=== PATIENT | female | born 1960 | race Caucasian/White ===

== ENCOUNTER → 2019-10-04 | Outpatient (CLI) | payer OTHER ==
[~2019-10-04] MED LIST: LEVO75TA PO; LISI-130 PO
--- NOTE | 2019-10-04 13:27 | PAIN ---
DATE OF SERVICE: 10/04/2019 INITIAL CONSULTATION FOR PAIN CLINIC CHIEF COMPLAINT: Low back and right lower extremity pain. HISTORY OF PRESENT ILLNESS: The patient is a 59-year-old female who presents with history of pain in the low back, right lower extremity for about a year, not a result of any specific injury or action she is aware of, just gradually increasing over time with normal wear and tear and daily activity. The patient reports the pain is now on the right leg in the posterior gluteus, posterior thigh, lateral thigh, anterior thigh, medial thigh and the knee and into the lower leg, mostly in the anterior surface but in the calf as well, to the ankle of left foot and occasionally in the right great toe. The patient reports it is constant, throbbing, stabbing, tingling and numbness, radiating pain in the right leg, aching and dull at times in the back. The patient reports it is worse with walking, standing, change in positions, awakens her from sleep at least 3 times a night, does not affect her bowel or bladder control significantly without any loss of continence, but can cause some increased urinary frequency. The patient reports it does affect her ability to walk significantly. She is not using any assistive devices to ambulate, however. The patient has not had any further treatment at this time, no physical therapy, no chiropractic treatment or other. She is doing some stretching and strengthening exercises on her own. The patient rates her disability rating from 0-10, 10 being the worst, is an 8 with family home responsibilities, 10 with recreational activities, 9 with social activity and occupation, 10 with sexual behavior, 9 with self-care and 10 with life support activities. The patient did have MRI scan of the lumbar spine showing bulging disks and degenerative changes throughout the lumbar spine, mostly in the L3-L4 with right greater than left, bilateral neural foraminal narrowing with L4-L5 showing foraminal disk bulging resulting in mild narrowing of the anterior inferior right neural foramen, L5-S1 showing right foraminal disk bulging and endplate osteophyte formation resulting in moderate narrowing of the inferior portion of the right neural foramen and approaching inferior surface of the right foraminal L5 nerve root. The patient reports significant fatigability in the right lower extremity with walking and change in positions. No overt motor loss. PAST MEDICAL HISTORY: Significant for hearing loss, hypertension, dizziness, arthritis. PREVIOUS SURGERY: Include thyroidectomy, , foot surgery on the left foot in 1999 and 2003 as well as the right foot in 1999 and 2003, and fibroid excision in 1995. CURRENT MEDICATIONS: Include lisinopril and Synthroid. ALLERGIES: THE PATIENT IS ALLERGIC TO KAYCEE. FAMILY HISTORY: Significant for diabetes and cancers. SOCIAL HISTORY: The patient does not smoke, drinks alcohol, 2-3 glasses of wine daily on average. Denies any illegal, illicit or recreational drugs. She is , lives with her spouse, has 2 children living at home and lives locally in [place], [place]. REVIEW OF SYSTEMS: The patient's review of systems is positive for those items mentioned in history of present illness. All systems reviewed and otherwise negative. It is complete, full and well documented on the patient's chart. PHYSICAL EXAMINATION: VITAL SIGNS: The patient's blood pressure is 177/97, pulse 65, respirations are 18, temperature 98.0 degrees Fahrenheit, height is 66 inches and weight is 197 pounds. GENERAL: The patient is awake, alert, oriented, appropriate, very pleasant demeanor. HEENT: Shows normocephalic, atraumatic. Extraocular movements are intact and symmetrical. Oral cavity: Mucous membranes moist and pink. Dentition is intact. NECK: Shows anterior throat supple without palpable lymphadenopathy noted. Swallow reflex symmetrical. CHEST: Shows normal on inspection. Breath sounds are clear bilaterally. HEART: Shows S1, S2 clear. No murmurs auscultated. ABDOMEN: Soft, nontender, nondistended. No palpable organomegaly is noted. No rebound or guarding demonstrated. BACK: Shows spine grossly in the midline. Normal appearing thoracic kyphosis and lumbar lordotic curvature. Lumbar paraspinous muscle shows symmetrical on inspection, on palpation shows some moderate tenderness diffusely, but only diffusely without significant radiation. The patient shows good rotational motion with some minor tenderness with right lateral rotation as well as extension, but not with forward flexion or left lateral rotation of the lumbar spine. The patient shows no tenderness with specific palpation over the sacroiliac joints or the sacrum or the spinous processes of the lumbar spine. EXTREMITIES: The patient's lower extremities show deep tendon reflexes 2+ in the patellar, 1+ tendo-calcaneus tendons. Motor exam is strong with approximately 4 on a scale of 5 with right dorsiflexion and extension and 5/5 on the left, quadriceps and hamstring flexion likewise 4/5 right, 5/5 left. The patient has a positive straight leg raise on the right about 35 degrees, decreased with knee flexion, but not completely relieved. Left side is negative. Gaenslen's and Lencho's maneuvers are negative bilaterally as well. The patient is able to stand, stand on her toes without significant difficulty or loss of balance and walks with a slight favoring gait, does appear to favor the right lower extremity and has a limp favoring the right leg, not using any assistive device such as canes or walkers to ambulate. SKIN: Shows warm and dry, good turgor. No edema. No sores, rashes or bruising. IMPRESSION: 1. This is a 59-year-old female with radicular pain in right lower extremity in L3-L4 for L4-L5 and L5-S1 distribution, most significant at L4-L5. 2. MRI scan of lumbar spine as noted. 3. Hypertension. 4. History of arthritis. PLAN: Options were discussed with the patient including conservative medical managements, physical therapies and interventional techniques. She would like to pursue interventional techniques. We discussed a lumbar epidural steroid injection using description as well as anatomical models to describe the procedure. The patient will wait for preauthorization with her insurance provider and will return to clinic once authorization is obtained and we will plan on lumbar epidural steroid injection at that time, translaminar approach at the L4-L5 level. In the meantime, the patient will continue with strengthening and stretching exercises, doing daily stretches and walking as tolerated. ABI PORTER MD DR: LUCIEN/malvin JOB#: [id number] / [id number]
== END | disposition home or self-care (01) ==
LOC: PNCL 09:56
PROVIDERS: ATTEND Anesthesiology
DX: M79.604 Pain in right leg (principal); M54.17 Radiculopathy, lumbosacral region; I10 Essential (primary) hypertension; M19.90 Unspecified osteoarthritis, unspecified site; E89.0 Postprocedural hypothyroidism; Z88.8 Allergy status to other drugs, medicaments and biological substances
CPT/HCPCS: G0463

== ENCOUNTER → 2019-10-18 | Outpatient (CLI) | payer OTHER ==
[~2019-10-18] MED LIST changes: +IOHEXOL 180 MG/ML 10 ML VIAL. ONE; +methylPREDNISolone ACETATE 40 MG/ML VIAL. ONE
--- NOTE | 2019-10-18 10:59 | PAIN ---
DATE OF SERVICE: 10/18/2019 PROGRESS NOTE FOR PAIN CLINIC DIAGNOSES: Lumbar radiculopathy with lumbar degenerative disk disease. HISTORY OF PRESENT ILLNESS: The patient is a 59-year-old female who returns for followup status post initial evaluation and preauthorization for lumbar epidural steroid injection. The patient has obtained that now and would like to proceed. She reports still significant pain in the low back, right lower extremity, posterior gluteus, posterolateral thigh, lateral anterior thigh, and medial thigh on the right side. The patient reports that 9 on a scale of 10 at its worse, the past week, 8 on average, 7 at its least and is an 8 today. The patient reports it is aching, shooting, tingling and radiating becoming more constant with walking and standing. No new motor or sensory deficits. It still awakens her from sleep about every 3-4 hours. PHYSICAL EXAMINATION: VITAL SIGNS: The patient's blood pressure 179/112, pulse 63, respirations 16, temperature 98.5 degrees Fahrenheit, and weight is 195 pounds. GENERAL: The patient is awake, alert, oriented, appropriate, very pleasant demeanor. HEENT: Head shows normocephalic, atraumatic. Extraocular movements are intact and symmetrical. Oral cavity: Mucous membranes moist and pink. Dentition is intact. NECK: Shows anterior throat supple without palpable lymphadenopathy noted. Swallow reflex symmetrical. CHEST: Shows normal on inspection. Breath sounds are clear bilaterally. HEART: Shows S1, S2 clear. ABDOMEN: Soft, nontender, nondistended. BACK: Shows spine grossly in the midline. Normal-appearing thoracic kyphosis and some minor flattening of lumbar lordotic curvature. Lumbar paraspinous muscle shows symmetrical on inspection, with palpation shows some moderate tenderness diffusely bilaterally going diffusely without significant radiation. The patient has good rotational motion of lumbar spine, both laterally as well as extension and flexion without difficulty. EXTREMITIES: The patient's lower extremities show deep tendon reflexes 2+ in the patellar, 1+ tendo-calcaneus tendons. Motor exam is strong with approximately 4 on a scale of 5 on the right and 5/5 on the left with dorsiflexion and extension. Peripheral pulses are 1+ posterior tibia. No peripheral edema bilaterally. Options were discussed with the patient. The patient's old chart was reviewed. Her current medication regimen updated. Current review of systems updated today as well. We will proceed with a first in a series of lumbar epidural steroid injection today with fluoroscopic guidance. Risks were again discussed including but not limited to bleeding, infection, possibility of epidural hematoma, subsequent neurological compromise, dural puncture, headaches, spinal cord and/or nerve damage, side effects of steroid medication, and poor results regarding pain control. The patient understands and wished to proceed. The patient will return to clinic in approximately 2 weeks for followup. She was counseled on return appointment, activity level and side effects to be aware of. DIAGNOSIS: Lumbar radiculopathy with lumbar degenerative disk disease. PROCEDURE: Lumbar epidural steroid injection, translaminar approach at L4-L5 level using C-arm fluoroscopic guidance under sterile prep and drape using local anesthetic. MEDICATION INJECTED: A total of 120 mg Depo-Medrol plus 10 mL of preservative-free normal saline and 2 mL of contrast. CONDITION AT DISCHARGE: Stable. The patient tolerated the procedure well, had no complications. ABI PORTER MD DR: LUCIEN/malvin JOB#: [id number] / [id number]
== END ==
LOC: PNCL 10:07
PROVIDERS: ATTEND Anesthesiology
DX: M51.16 Intervertebral disc disorders with radiculopathy, lumbar region (principal)
CPT/HCPCS: 62323; J1030; Q9965

== ENCOUNTER → 2020-04-10 | Outpatient (CLI) | payer OTHER ==
[~2020-04-10] MED LIST changes: +AMLO2.5T5 PO; -LEVO75TA PO; +LEVO75TA90 PO; +METF500T16 PO; +TELM40TA PO; +methylPREDNISolone ACETATE 80 MG/ML VIAL. ONE
--- NOTE | 2020-04-10 08:51 | PDOC ---
Progress Note - Pain Clinic Date of Service: DOS: DATE: 04/10/20 TIME: 08:48 Diagnosis: Dx: Lumbar radiculopathy with lumbar degenerative disc disease History or Present Illness: HPI: 59-year-old female presents history of pain low back and right lower extremity after lumbar epidural steroid traction x1 October 18, 2019. Patient pushed very well after the first injection with approximately 75% improvement now the pain is returning in the low back and right lower extremity posterior gluteus posterior lateral thigh lateral anterior thigh anteromedial thigh medial lower leg into the ankle radiating described as constant unbearable at times with walk ing standing and aching in the low back. Patient reports better with sitting or laying down generally not awaken her from sleep at night but can occasionally patient reports agrees to reposition to get back to sleep. Patient rates her pain as a 9 on scale 10 is worse over the past week 9 on average 8 its least is a 9 today. Patient reports no new motor or sensory deficits no new bowel or bladder incontinence or other complaints. Physical Exam: VS: Blood pressure is 156/94 pulse 66 respirations 16 temperature is 90.2 F weight is 192 pounds PE: PHYSICAL EXAMINATION: GENERAL: The patient is awake, alert, oriented, appropriate, very pleasant demeanor HEENT: Shows normocephalic, atraumatic. Extraocular movements are intact and symmetrical. Oral cavity: Mucous membranes moist and pink. Dentition is intact. NECK: Shows anterior throat supple without palpable lymphadenopathy noted. Swallow reflex symmetrical. CHEST: Shows normal on inspection. Breath sounds are clear bilaterally, no rales rhonchi or wheezes. HEART: Shows S1, S2 clear. No murmurs auscultated. ABDOMEN: Soft, nontender, nondistended. No palpable organomegaly is noted. No rebound or guarding demonstrated. BACK: Shows spine grossly in the midline. Normal-appearing cervical lordotic curvature. There is slightly increased thoracic kyphosis, some minor flattening of the lumbar lordotic curvature. Lumbar paraspinous muscles show symmetrical on inspection, on palpation shows some moderate tenderness diffusely throughout the upper, middle and lower distribution of the paraspinous muscles bilaterally and also into the lower thoracic paraspinous musculature, firm, but without specific trigger points, without radiation of pain. The patient has good rotational motion of the lumbar spine, both laterally as well as extension and flexion without significant difficulty. No tenderness over the spinous processes, sacrum or sacroiliac regions. EXTREMITIES: Lower extremities show deep tendon reflexes 2+ in the patellar and tendo calcaneus tendons. Motor exam is 4 on a scale of 5 with right dorsiflexion, extension, quadriceps and hamstring flexion and 5/5 on the left. Peripheral pulses are 1+ posterior tibial. No peripheral edema is noted bilaterally. Lower extremities are warm and dry to touch, equal in color and appearance. Straight leg raise noted to be positive on the right about 4 degrees, left side is negative. Gaenslen's and Lencho's maneuvers are negative as well. The patient is able to stand, stand on her toes without significant difficulty or loss of balance walks with a slight favoring gait favoring the right lower extremity but no assistive devices or canes or walkers. SKIN: Shows warm and dry, good turgor. No edema. No sores, rashes or bruising throughout. Procedure: Procedure: Options discussed with the patient patient's old chart was reviewed as her current medication regimen updated current review of systems updated today as well. We will proceed with a second in the series lumbar epidural steroid check today with fluoroscopic guidance. Risks are again discussed including but not limited to bleeding infection possibility of epidural hematoma subsequent neurological compromise dural puncture headache spinal cord and nerve damage side effects of steroid medication and poor results chronic pain control. Patient understands and wishes to proceed. Patient will return to the clinic in approximately 2 weeks for follow-up. Was counseled as to return appointment activity level and side effects to be aware of. Medication Injected: Med Injected: Procedure is lumbar epidural steroid injection under local anesthetic using sterile prep and drape at the L4-5 level using C-arm fluoroscopic guidance in both AP and lateral views medications injected is 120 mg Depo-Medrol + 10 mL preservative-free normal saline and 2 mL Isovue for contrast- condition at discharge is stable patient tolerated procedure well had no complications. Condition at Discharge: Condition at Discharge: Condition at discharge stable patient on the procedure well had no complications. ABI PORTER MD Apr 10, 2020 08:51
== END | disposition home or self-care (01) ==
LOC: PNCL 08:05
PROVIDERS: ATTEND Anesthesiology
DX: M51.16 Intervertebral disc disorders with radiculopathy, lumbar region (principal); Z88.8 Allergy status to other drugs, medicaments and biological substances
CPT/HCPCS: 62323; J1030; J1040; Q9965

== ENCOUNTER → 2020-04-28 | Outpatient (CLI) | payer OTHER ==
--- NOTE | 2020-04-28 08:11 | PDOC ---
Progress Note - Pain Clinic Date of Service: DOS: DATE: 04/28/20 TIME: 08:08 Diagnosis: Dx: Lumbar radiculopathy with lumbar degenerative disc disease History or Present Illness: HPI: 59-year-old female returns follow-up status post lumbar epidural straight injection x2 most recently on April 10, 2012. Patient reports about 75% improvement initially but now the pain is returned fairly significantly in the low back and right lower extremity right posterior gluteus posterior lateral thigh lateral anterior thigh anterior medial thigh and to the ankle on the right side. Patient which is worse with walking standing changing positions as well as starting her from sleep about once to twice at night. Patient ports no new motor or sensory deficits no new bowel or bladder incontinence but still significant pain in the low back and right lower extremity. Patient rates as a 10 on scale 10 is worse with the past week 10 on average 10 at its least is a 10 today. Patient reports no new motor or sensory deficits no new bowel or bladder incontinence or other complaints. Patient scribes pain is aching and shooting burning stabbing in the back radiating in the right lower extremity constant and severe. Physical Exam: VS: Blood pressure 137/88 pulse 68 respiration 16 temperature 98.4 F height is 66 inches weight is 183 pounds PE: PHYSICAL EXAMINATION: GENERAL: The patient is awake, alert, oriented, appropriate, very pleasant demeanor HEENT: Shows normocephalic, atraumatic. Extraocular movements are intact and symmetrical. Oral cavity: Mucous membranes moist and pink. NECK: Shows anterior throat supple without palpable lymphadenopathy noted. Swallow reflex symmetrical. CHEST: Shows normal on inspection. Breath sounds are clear bilaterally, no rales rhonchi or wheezes auscultated. HEART: Shows S1, S2 clear. No murmurs auscultated. ABDOMEN: Soft, nontender, nondistended. No palpable organomegaly is noted. No rebound or guarding demonstrated. BACK: Shows spine grossly in the midline. Normal-appearing cervical lordotic curvature. There is slightly increased thoracic kyphosis, some minor flattening of the lumbar lordotic curvature. Lumbar paraspinous muscles show symmetrical on inspection, on palpation shows some moderate tenderness diffusely throughout the upper, middle and lower distribution of the paraspinous muscles bilaterally, but without specific trigger points, without radiation of pain. The patient has good rotational motion of the lumbar spine, both laterally as well as extension and flexion without significant difficulty. No tenderness over the spinous processes, sacrum or sacroiliac regions. EXTREMITIES: Lower extremities show deep tendon reflexes 2+ in the patellar and tendo calcaneus tendons. Motor exam is 4 on a scale of 5 with right dorsiflexion, extension, quadriceps and hamstring flexion and 5/5 on the left. Peripheral pulses are 1+ posterior tibial. No peripheral edema is noted bilaterally. Lower extremities are warm and dry to touch, equal in color and appearance. SKIN: Shows warm and dry, good turgor. No edema. No sores, rashes or bruising throughout. Procedure: Procedure: Options were discussed with the patient. Patient chart was reviewed as her current medication regimen updated current review of systems updated today as well. We will proceed with a third in the series lumbar epidural steroid inje ction today with fluoroscopic guidance risks again discussed including but not limited to bleeding infection possibility of epidural hematoma subsequent neurological compromise dural puncture headache spinal cord and or nerve damage side effects of steroid medication and portal scarring pain control. Patient understands wished to proceed. Patient return to clinic in approximate 2 weeks for follow-up was counseled as to return appointment activity level and side effects to be aware of. Medication Injected: Med Injected: Procedure is lumbar epidural steroid injection under local anesthetic using ster ile prep and drape at the L4-5 level using C-arm fluoroscopic guidance in both AP and lateral views medications injected is 120 mg Depo-Medrol + 10 mL preservative-free normal saline and 2 mL contrast- condition at discharge is stable patient tolerated procedure well had no complications. Condition at Discharge: Condition at Discharge: Condition at discharge is stable patient tolerated the procedure well had no complications. ABI PORTER MD Apr 28, 2020 08:11
--- NOTE | 2020-04-29 12:45 | PDOC ---
Progress Note - Pain Clinic Date of Service: DOS: DATE: 04/29/20 TIME: 12:44 History or Present Illness: HPI: Reaction from note on number first 2019 "59-year-old female returns follow-up status post lumbar epidural straight injection x2 most recently on April 10, 2012" Should read April 10, 2020 Physical Exam: PE: PHYSICAL EXAMINATION: GENERAL: The patient is awake, alert, oriented, appropriate, very pleasant demeanor HEENT: Shows normocephalic, atraumatic. Extraocular movements are intact and symmetrical. Oral cavity: Mucous membranes moist and pink. Dentition is intact. NECK: Shows anterior throat supple without palpable lymphadenopathy noted. Swallow reflex symmetrical. CHEST: Shows normal on inspection. Breath sounds are clear bilaterally. HEART: Shows S1, S2 clear. No murmurs auscultated. ABDOMEN: Soft, nontender, nondistended. No palpable organomegaly is noted. No rebound or guarding demonstrated. BACK: Shows spine grossly in the midline. Normal-appearing cervical lordotic curvature. There is slightly increased thoracic kyphosis, some minor flattening of the lumbar lordotic curvature. Lumbar paraspinous muscles show symmetrical on inspection, on palpation shows some moderate tenderness diffusely throughout the upper, middle and lower distribution of the paraspinous muscles bilaterally and also into the lower thoracic paraspinous musculature, firm and tender, but without specific trigger points, without radiation of pain. The patient has good rotational motion of the lumbar spine, both laterally as well as extension and flexion without significant difficulty. No tenderness over the spinous processes, sacrum or sacroiliac regions. EXTREMITIES: Lower extremities show deep tendon reflexes [] in the patellar and tendo calcaneus tendons. Motor exam is [] on a scale of 5 with right dorsiflexion, extension, quadriceps and hamstring flexion and []/5 on the left. Peripheral pulses are [] posterior tibial. [] peripheral edema is noted bilaterally. Lower extremities are warm and dry to touch, equal in color and appearance. Straight leg raise noted to be [] on the right about [] degrees, left side is []. Gaenslen's and Lencho's maneuvers are [] as well. The patient is able to []. SKIN: Shows warm and dry, good turgor. No edema. No sores, rashes or bruising throughout. ABI PORTER MD Apr 29, 2020 12:45
== END | disposition home or self-care (01) ==
LOC: PNCL 07:27
PROVIDERS: ATTEND Anesthesiology
DX: M51.16 Intervertebral disc disorders with radiculopathy, lumbar region (principal); Z88.8 Allergy status to other drugs, medicaments and biological substances; Z79.899 Other long term (current) drug therapy
CPT/HCPCS: 62323; J1030; J1040; Q9965

== ENCOUNTER → 2020-08-24 | Outpatient (CLI) | payer OTHER ==
[~2020-08-24] MED LIST changes: +LIDOCAINE 2% PF 5 ML VIAL. ONE; +PROPOFOL 10 MG/ML (20ML) VIAL. IV ONE; +ROCURONIUM 50 MG/5 ML VIAL. ONE; +fentaNYL PF VIAL 100 MCG/2 ML VIAL ONE
--- NOTE | 2020-08-24 15:14 | PDOC ---
Progress Note - Pain Clinic Date of Service: DOS: DATE: 08/24/20 TIME: 15:10 Diagnosis: Dx: Lumbar radiculopathy with lumbar degenerative disc disease History or Present Illness: HPI: 59-year-old female returns follow-up status post lumbar epidural steroid injections x3 most recently April 28, 2020 did very well with about 200% improvement pain returning and was recently preauthorization for repeat injection patient with pain in the low back bilateral lower extremities now worse on the left side than the right where was previously worse on the right. Patient reports pain is cramping and shooting in the low back left lower extremity posterior gluteus lateral thigh anterior thigh medial thigh medial lower leg and calf patient reports is a 9 on scale 10 is worse over the past week 9 on average 9 its least is a 9 today patient scribes it can be constant and unbearable at times with walking standing better with sitting or laying down reports initially she was doing much better with distance walking doing household activities work activities travel with greater ease and comfort sleeping better at night now is waking her from sleep about every 2 hours. Patient reports no new motor or sensory deficits no new bowel or bladder incontinence. Physical Exam: VS: Blood pressure is 133/88 pulse 63 respirations 18 temp 37 height is 66 inches weight is 172 pounds PE: PHYSICAL EXAMINATION: GENERAL: The patient is awake, alert, oriented, appropriate, very pleasant demeanor HEENT: Shows normocephalic, atraumatic. Extraocular movements are intact and symmetrical. NECK: Shows anterior throat supple without palpable lymphadenopathy noted. Swallow reflex symmetrical. CHEST: Shows normal on inspection. Breath sounds clear bilaterally. HEART: Shows S1, S2 clear. No murmurs auscultated. ABDOMEN: Soft, nontender, nondistended, obese. No palpable organomegaly is no anitha. No rebound or guarding demonstrated. BACK: Shows spine grossly in the midline. Normal-appearing cervical lordotic curvature. There is slightly increased thoracic kyphosis, some minor flattening of the lumbar lordotic curvature. Lumbar paraspinous muscles show symmetrical on inspection, on palpation shows some moderate tenderness diffusely throughout the upper, middle and lower distribution of the paraspinous muscles without specific trigger points, without radiation of pain. The patient has good r otational motion of the lumbar spine, both laterally as well as extension and flexion without significant difficulty. No tenderness over the spinous processes, sacrum or sacroiliac regions. EXTREMITIES: Lower extremities show deep tendon reflexes 2+ in the patellar and tendo calcaneus tendons. Motor exam is 4 on a scale of 5 with right dorsiflexion, extension, quadriceps and hamstring flexion and 5/5 on the left. Peripheral pulses are 1+ posterior tibial. No peripheral edema is noted bilaterally. Lower extremities are warm and dry to touch, equal in color and appearance. SKIN: Shows warm and dry, good turgor. No edema. No sores, rashes or bruising throughout. Procedure: Procedure: Options were discussed with the patient. Patient chart reviewed as her current medication regimen updated current review of systems updated today as well. We will proceed with a first in the series lumbar epidural steroid injection today with fluoroscopic guidance. Risks were discussed including but not limited to: Bleeding, infection, possibility of epidural hematoma and subsequent neurological compromise, dural puncture, headaches, spinal cord and/or nerve damage, side effects of steroid medication, and poor results regarding pain control. Patient understands wished to proceed. Patient return to clinic in approximate 2 weeks for follow-up was counseled as to return appointment activity level and side effects to be aware of. Medication Injected: Med Injected: Procedure is lumbar epidural steroid injection under local anesthetic using sterile prep and drape at the L4-5 level using C-arm fluoroscopic guidance in both AP and lateral views medications injected is 120 mg Depo-Medrol + 10 mL preservative-free normal saline and 2 mL contrast- condition at discharge is stable patient tolerated procedure well had no complications. Condition at Discharge: Condition at Discharge: Condition at discharge stable, patient tolerated procedure well and had no complications. ABI PORTER MD Aug 24, 2020 15:14
== END | disposition home or self-care (01) ==
LOC: PNCL 14:11
PROVIDERS: ATTEND Anesthesiology
DX: M51.16 Intervertebral disc disorders with radiculopathy, lumbar region (principal); I10 Essential (primary) hypertension; M19.90 Unspecified osteoarthritis, unspecified site; Z79.899 Other long term (current) drug therapy; Z88.8 Allergy status to other drugs, medicaments and biological substances; Z79.84 Long term (current) use of oral hypoglycemic drugs
CPT/HCPCS: 62323; J1030; J1040; J2704; J3010; Q9965

== ENCOUNTER → 2020-10-05 | Outpatient (CLI) | payer OTHER ==
[~2020-10-05] MED LIST changes: -IOHEXOL 180 MG/ML 10 ML VIAL. ONE; -LIDOCAINE 2% PF 5 ML VIAL. ONE; -PROPOFOL 10 MG/ML (20ML) VIAL. IV ONE; -ROCURONIUM 50 MG/5 ML VIAL. ONE; -fentaNYL PF VIAL 100 MCG/2 ML VIAL ONE; -methylPREDNISolone ACETATE 40 MG/ML VIAL. ONE; -methylPREDNISolone ACETATE 80 MG/ML VIAL. ONE
--- NOTE | 2020-10-05 14:38 | KCIC ---
MR CERVICAL SPINE WO DATE: 10/05/2020 12:30 PM INDICATION: RADICULOPATHY. RUE PAIN, NUMBNESS AND TINGLING X 3 MONTHS. TECHNIQUE: Multiplanar multisequence magnetic resonance imaging of the cervical spine was performed w ithout administration of intravenous contrast using the standard cervical spine protocol. COMPARISON: None. FINDINGS: The cervical spine is normally aligned. No acute fracture. Moderate multilevel degenerative disc shayne iccation and disc height loss. T2 hemangioma. The spinal cord is normal in signal intensity. On the limited views of the cranial cavity and brain, the cerebellum and mukul have normal morphology and signal characteristics. No Chiari malformation. No soft tissue abnormality. Normal signal voids are present in the vertebral arteries. C2-3: Disc osteophyte complex. Mild left facet arthropathy. No significant neural foraminal narrowing or spinal canal stenosis. C3-4: Disc osteophyte complex. Uncovertebral hypertrophy. Mild facet arthropathy. Mild spinal canal s tenosis. Mild bilateral neural foraminal narrowing. C4-5: Disc osteophyte complex. Uncovertebral hypertrophy. Mild facet arthropathy. Moderate bilateral neural foraminal narrowing. Mild to moderate spinal canal stenosis. C5-6: Disc osteophyte complex. Uncovertebral hypertrophy. Moderate left facet arthropathy. Moderate r ight and severe left neural foraminal narrowing. Mild spinal canal stenosis. C6-7: Disc osteophyte complex. Uncovertebral hypertrophy. Mild facet arthropathy. Severe right and mo derate to severe left neural foraminal narrowing. Mild spinal canal stenosis. C7-T1:. Mild right and moderate left facet arthropathy. No significant spinal canal stenosis or neura l foraminal narrowing. IMPRESSION: Moderate to severe cervical spondylosis, detailed level by level above. Electronically signed by: Niranjan Torres MD (10/05/2020 2:35 PM) [id number]
== END ==
LOC: KCIC MRI 12:20
PROVIDERS: ATTEND Family Medicine
DX: M47.22 Other spondylosis with radiculopathy, cervical region (principal); M48.02 Spinal stenosis, cervical region; M25.78 Osteophyte, vertebrae
CPT/HCPCS: 72141

== ENCOUNTER → 2020-10-12 | Outpatient (CLI) | payer OTHER ==
[~2020-10-12] MED LIST changes: +IOHEXOL 180 MG/ML 10 ML VIAL. ONE; +methylPREDNISolone ACETATE 40 MG/ML VIAL. ONE; +methylPREDNISolone ACETATE 80 MG/ML VIAL. ONE
--- NOTE | 2020-10-12 09:13 | PDOC ---
Progress Note - Pain Clinic Date of Service: DOS: DATE: 10/12/20 TIME: 09:09 Diagnosis: Dx: Cervical radiculopathy with cervical degenerative disc disease Lumbar radiculopathy with lumbar degenerative disc disease History or Present Illness: HPI: 60-year-old female returns for follow-up status post lumbar epidural steroid injections x3. Last seen August 16, 2020. Patient reports about 100% imp rovement in the low back and left lower extremity pain her chief complaint is neck shoulder and right upper extremity pain. Patient reports pain getting worse for the past 2 months or so no recent injury or accident that she is aware of is getting much worse with pain the base of the neck and shoulder radiating upper extremity posterior anterior aspect of the bicep as well as into the forearm especially the thumb and the first finger with numbness and tingling on the right hand only. Patient reports is tingling burning cramping radiating constant severe can be unbearable with numbness in the hand and fingers regimen dropping items with the right hand, worse with repetitive motions reaching overhead with the right hand and lifting items. Patient rates her pain is a 10 on scale 10 at worst average and least is a 10 today. We did discuss patient cervical MRI scan with her today showing some degenerative changes at the C4 556 especially C6-7 with severe right and moderate to severe left neuroforaminal narrowing. Physical Exam: VS: Blood pressure is 135/88 pulse 69 respiration 16 temperature 90.5 F height is 66 inches weight is 174 pounds PE: PHYSICAL EXAMINATION: GENERAL: The patient is awake, alert, oriented, appropriate, very pleasant demeanor HEENT: Shows normocephalic, atraumatic. Extraocular movements are intact and symmetrical. NECK: Shows anterior throat supple without palpable lymphadenopathy noted. Swallow reflex symmetrical. CHEST: Shows normal on inspection. Breath sounds are clear bilaterally. HEART: Shows S1, S2 clear. No murmurs auscultated. ABDOMEN: Soft, nontender, nondistended. No palpable organomegaly is noted. No rebound or guarding demonstrated. BACK: Shows spine grossly in the midline. Normal-appearing cervical lordotic curvature. Cervical paraspinous muscles show symmetrical on inspection, on palpation some moderate tenderness diffusely bilaterally but only diffusely without significant radiation or asymmetry. Patient shows good rotation motion cervical spine both laterally as well as extension flexion without significant increase in pain. There is slightly increased thoracic kyphosis, some minor flattening of the lumbar lordotic curvature. Lumbar paraspinous muscles show s ymmetrical on inspection, on palpation shows some moderate tenderness diffusely throughout the upper, middle and lower distribution of the paraspinous muscles, but without specific trigger points, without radiation of pain. The patient has good rotational motion of the lumbar spine, both laterally as well as extension and flexion without significant difficulty. EXTREMITIES: Lower extremities show deep tendon reflexes 2+ in the patellar and tendo calcaneus tendons. Motor exam is 4 on a scale of 5 with right dorsiflexion, extension, quadriceps and hamstring flexion and 5/5 on the left. Peripheral pulses are 1+ posterior tibial. No peripheral edema is noted bilaterally. Lower extremities are warm and dry to touch, equal in color and appearance. Upper extremities show deep tendon reflexes 2+ in the bicep triceps tendons are equal motor exam is approximately 4 and scale 5 with right lay out maker strength bicep tricep flexion 5 out of 5 on the left. Peripheral pulses are 2+ radial no peripheral edema is noted bilaterally. Shoulder shrug strong and intact without loss of strength on resistance as is abduction of the shoulders at 90 degrees without loss of strength bilaterally as well. SKIN: Shows warm and dry, good turgor. No edema. No sores, rashes or bruising throughout. Procedure: Procedure: Options were discussed with the patient. Patient chart reviews her current medication regimen updated current review of systems updated today as well. We will proceed with a cervical epidural steroid injection today with fluoroscopic guidance. Risks were discussed including but not limited to: Bleeding, infection, possibility of epidural hematoma and subsequent neurological compromise, dural puncture, headaches, spinal cord and/or nerve damage, side effects of steroid medication, and poor results regarding pain control. Patient understands and wished to proceed. Patient return to clinic in approximate 2 weeks for follow-up, with counselors return appointment activity level and side effects to be aware of. Medication Injected: Med Injected: Procedure cervical epidural steroid injection at the C6-7 level, using local anesthetic under sterile prep and drape using C-arm fluoroscopic guidance under local anesthesia medications injected ; 120 mg Depo-Medrol + 5 mL normal saline and 2 mL contrast; condition at discharge is stable patient tolerated procedure well. and had no complications Condition at Discharge: Condition at Discharge: Condition at discharge stable, patient tolerated procedure well and had no complications. ABI PORTER MD Oct 12, 2020 09:13
--- NOTE | 2020-10-12 09:33 | PDOC4 ---
PROCEDURE Procedure Patient consented for cervical epidural steroid injection. Risks were discussed including but not limited to: Bleeding, infection, possibility of epidural hematoma and subsequent neurological compromise, dural puncture, headaches, spinal cord and/or nerve damage, side effects of steroid medication, and poor results regarding pain control. Patient understands and wished to proceed. Procedure cervical epidural steroid injection at the C6-7 level, using local anesthetic under sterile prep and drape using C-arm fluoroscopic guidance under local anesthesia medications injected ; 120 mg Depo-Medrol + 5 mL normal saline and 2 mL contrast; condition at discharge is stable patient tolerated procedure well. and had no complications ABI PORTER MD Oct 12, 2020 09:33
== END | disposition home or self-care (01) ==
LOC: PNCL 08:21
PROVIDERS: ATTEND Anesthesiology
DX: M50.10 Cervical disc disorder with radiculopathy, unspecified cervical region (principal); M51.16 Intervertebral disc disorders with radiculopathy, lumbar region; Z79.899 Other long term (current) drug therapy; Z88.8 Allergy status to other drugs, medicaments and biological substances
CPT/HCPCS: 62321; J1030; J1040; Q9965

== ENCOUNTER → 2020-10-26 | Outpatient (CLI) | payer OTHER ==
[~2020-10-26] MED LIST changes: +ACET1TAB33 PO; -IOHEXOL 180 MG/ML 10 ML VIAL. ONE; -methylPREDNISolone ACETATE 40 MG/ML VIAL. ONE; -methylPREDNISolone ACETATE 80 MG/ML VIAL. ONE
--- NOTE | 2020-10-26 08:37 | PDOC ---
Progress Note - Pain Clinic Date of Service: DOS: DATE: 10/26/20 TIME: 08:32 Diagnosis: Dx: Cervical radiculopathy with cervical degenerative disease Lumbar colopathy with lumbar degenerative disc History or Present Illness: HPI: 60-year-old female returns follow-up status post lumbar epidural to injection x1 with near 100% improvement in her low back however at last visit we had performed a cervical epidural steroid injection patient reports no significant provement in the base the neck and right upper extremity , patient is now having increased pain in the right upper extremity as well as significant weakness has been dropping items at difficulty using her right arm for any activities at this time. Patient reports her pain is a 10 on scale 10 is worst average and least is a 10 today describes as aching and tight shooting in the right arm tingling and burning in the right hand radiating coming more constant and more painful and less ability to use the upper extremity for any purposeful activity. Patient reports keeping her from sleeping at night more than about 3 to 4 hours at a time as well. We reviewed patient's MRI scan with her today from October 05 showing severe right and moderate to severe left neuroforaminal narrowing at the C6-7 level as well as some moderate right and severe left neuroforaminal narrowing at C5-6 level. Patient scribes pain is aching tight shooting tingling burning radiating and becoming more constant especially with significant increase in weakness with the right upper extremity. Physical Exam: VS: Blood pressure is 149/87 pulse 70 respirations 18 temperature 98.4 F weight is 169 pounds PE: PHYSICAL EXAMINATION: GENERAL: The patient is awake, alert, oriented, appropriate, very pleasant henry anor HEENT: Shows normocephalic, atraumatic. Extraocular movements are intact and symmetrical. Oral cavity: Mucous membranes moist and pink. Dentition is intact. NECK: Shows anterior throat supple without palpable lymphadenopathy noted. Swallow reflex symmetrical. CHEST: Shows normal on inspection. Breath sounds are clear bilaterally. HEART: Shows S1, S2 clear. No murmurs auscultated. ABDOMEN: Soft, nontender, nondistended. No palpable organomegaly is noted. BACK: Shows spine grossly in the midline. Normal-appearing cervical lordotic curvature. Cervical paraspinous muscles show symmetrical with inspection, on palpation shows some mild tenderness diffusely throughout the upper middle lower distribution the paraspinous muscle as well as the superior medial trapezius on the right greater than the left. Patient shows full rotation motion cervical spine both laterally as well as extension flexion without significant increase in pain. There is slightly increased thoracic kyphosis, some minor flattening of the lumbar lordotic curvature. Lumbar paraspinous muscles show symmetrical on inspection, on palpation shows some moderate tenderness diffusely throughout the upper, middle and lower distribution of the paraspinous muscles, but without specific trigger points, without radiation of pain. The patient has good rotational motion of the lumbar spine, both laterally as well as extension and flexion without significant difficulty. No tenderness over the spinous processes, sacrum or sacroiliac regions. EXTREMITIES: Lower extremities show deep tendon reflexes 2+ in the patellar and tendo calcaneus tendons. Motor exam is 5 on a scale of 5 with right dorsiflexion, extension, quadriceps and hamstring flexion and 5/5 on the left. Peripheral pulses are 1+ posterior tibial. No peripheral edema is noted bilaterally. Lower extremities are warm and dry to touch, equal in color and appearance. Upper extremities show deep tendon reflexes 2+ in the bicep and tricep tendons motor exam is proximately 3 on a scale of 5 with right creative assistant strength bicep and tricep flexion 5 out of 5 on the left. Pulses are 2+ radial no peripheral edema is noted. Patient shoulder shrug is strong and intact but with abduction of the right shoulder shows significant loss of strength on resistance with abduction as well as is abduction. Left side shows 5 out of 5 strength with no loss of strength on resistance. SKIN: Shows warm and dry, good turgor. No edema. No sores, rashes or bruising throughout. Procedure: Procedure: Options were discussed with the patient. Patient's old chart was reviewed as her current medication regimen updated current review of systems updated today as well. As patient has had significant increase pain level and increasing weakness in the right upper extremity will forego any further injections at this time. We recommend patient to see a neurosurgeon regarding the significant radiculopathy in the right upper extremity and progressive weakness. Patient understands and would like to pursue this as well. Medication Injected: Med Injected: None Condition at Discharge: Condition at Discharge: Condition at discharge is stable. Recommendations: Neurosurgical evaluation for progressive weakness right upper extremity with severe spinal stenosis in the inferior cervical spine status post physical therapy and cervical epidural steroid injections without significant improvement. ABI PORTER MD Oct 26, 2020 08:37
== END | disposition home or self-care (01) ==
LOC: PNCL 08:04
PROVIDERS: ATTEND Anesthesiology
DX: M50.10 Cervical disc disorder with radiculopathy, unspecified cervical region (principal); M51.36 Other intervertebral disc degeneration, lumbar region; Z79.84 Long term (current) use of oral hypoglycemic drugs; Z79.899 Other long term (current) drug therapy; Z88.8 Allergy status to other drugs, medicaments and biological substances
CPT/HCPCS: 99212; G0463